=== PATIENT | female | born 2005 | race Caucasian/White ===

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

== ENCOUNTER 2023-05-29 02:39 | Outpatient (CLI) | payer MEDICAID, SELFPAY ==
--- NOTE | 2023-06-04 21:41 | PDOC.EEG ---
Neurology EEG EEG: [facility] Department of Neurology LONG-TERM AMBULATORY EEG REPORT Date of Recordin05/29/23 at 15:39:01 to 05/30/23 at 19:48:59 Interpreting Physician: Dr. Sirisha Haddad PCP/Referring Provider: Reason for study: Current Medications: METHODS: An 18-channel digitized electroencephalogram was recorded in the ambulatory setting with video. The 10/20 international system of electrode placement was used and bipolar and referential electrode montages were recorded. In addition to EEG the patient was monitored for EKG and by video. Activation procedures of photic stimulation and hyperventilation were performed if applicable. The duration of the recording was ~28 hours. DESCRIPTION OF EEG: Waking background activity: During maximal wakefulness a 10.5-Hz posterior background rhythm was present which was well-modulated, symmetrical, reactive to eye opening, and of moderate voltage. Faster frequencies were present in the bilateral anterior head regions. There was a normal anterior-posterior voltage gradient. Drowsy and sleeping background activity: During drowsiness, there was attenuation of the posterior dominant background rhythm and vertex waves. Normal stage II and III sleep was present with symmetrical sleep spindles, K-complexes, and vertex waves with slowing of the background rhythm to delta/theta frequencies. REM sleep manifested by rapid lateral eye movements and faster background rhythms was recorded. Arousal was unremarkable. Interictal abnormalities: none. Ictal findings: Event #1 on 05/29/23 at ~1715 -Clinical manifestations: headache, dizziness x 2hrs -EEG findings: No abnormal or epileptiform activity. Event #2 on 05/29/23 at ~2316 -Clinical manifestations: full body twitch while lying down x 1 second -EEG findings: No abnormal or epileptiform activity. Event #3 on 05/30/23 at ~1106 -Clinical manifestations: sharp pain above left eye while heading for exam x 5 sec -EEG findings: No abnormal or epileptiform activity. Event #4 on 05/30/23 at 1132 -Clinical manifestations: slight head twitch while studying for exam x 1 sec -EEG findings: No abnormal or epileptiform activity. Event #5 on 05/30/23 at 1400 -Clinical manifestations: sharp above left eye while taking exam x 15 sec -EEG findings: No abnormal or epileptiform activity. Event #6 on 05/30/23 at 1528 -Clinical manifestations: slight head twitch to left while drawing x 1 sec -EEG findings: No abnormal or epileptiform activity. Event #7 on 05/30/23 at 1720 -Clinical manifestations: slight head twitch to left while watching youtube x 1 sec -EEG findings: No abnormal or epileptiform activity. Event #8 on 05/30/23 at 1919 -Clinical manifestations: head jerking back and sniffing watching tv x 2 sec -EEG findings: No abnormal or epileptiform activity. Event #9 on 05/30/23 at 1925 -Clinical manifestations: head jerking back and sniffing while talking x 2 sec -EEG findings: No abnormal or epileptiform activity. Activating Procedures: Photic stimulation was performed which produced a symmetrical posterior driving response at various flash frequencies. Hyperventilation was performed with moderate effort and produced subtle physiological slowing of the background. EKG: EKG revealed normal sinus rhythm. INTERPRETATION: This long-term EEG is normal during the awake and sleep states as well as during the activation procedures. Multiple events captured above - none associated with abnormal or epileptiform activity on EEG. PRIOR EEG: none CLINICAL CORRELATION: No focal regions of cerebral dysfunction or epileptiform activity was present. The events captured as above are not epileptic. Epilepsy remains a clinical diagnosis and a normal EEG does not rule out epilepsy. Clinical correlation is advised. Sirisha Haddad MD Code: [id number] Date of service: 05/29/23
== END 2023-05-29 02:40 | disposition home or self-care (01) ==
LOC: RT 02:39
PROVIDERS: PCP Nurse Practitioner Primary Care; Visit Provider Nurse Practitioner Adult Health
DX: F95.9 Tic disorder, unspecified (principal); R94.01 Abnormal electroencephalogram [EEG]
CPT/HCPCS: 95714

== ENCOUNTER 2023-07-29 00:21 | Emergency (ER) | payer MEDICAID, SELFPAY ==
[2023-07-29 00:25] VITALS: BP 167/112; PULSE 99; RESP 18; TEMP 36.2; O2SAT 99
--- NOTE | 2023-07-29 00:36 | ED.GENADUL_ITS ---
Discharge Plan Disposition Patient Disposition: Home Condition: Good Discharge Details Clinical Impression: Pain in tooth Primary Care Provider: KERA BOLDEN ED Provider: Krupa Arias Home Meds and New Rx's Prescriptions: Continued magnesium oxide 500 mg capsule 500 mg PO DAILY sumatriptan succinate 100 mg tablet See Rx Instructions PO .COMPLEX Qty: 14 3RF Rx Instructions: take 1 tab at onset of headache; if no relief, may repeat 1 tab after at least 2 hrs; max = 2 tabs/24 hrs PO prochlorperazine maleate 5 mg tablet See Rx Instructions PO TID PRN (Reason: headaches/nausea) Qty: 30 2RF Rx Instructions: Take 5-10 mg orally three times a day PRN; epinephrine 0.3 mg/0.3 mL auto-injector 0.3 mg IM Q5-15M PRN Rx Instructions: do not exceed 3 doses per episode levalbuterol tartrate [Xopenex HFA] 45 mcg/actuation HFA aerosol inhaler 1 puff inhalation .Q2-4H PRN albuterol sulfate [ProAir HFA] 200 PUFF HFA aerosol inhaler 2 puff Inhalation PRN Discharge Instructions Instructions: Dental Pain ED Additional Instructions: Tylenol and ibuprofen over the counter for pain; follow the directions on the bottle. Call your dentist in the morning to schedule an appointment to be seen as soon as possible to follow up on your visit today. Return to the emergency department for new or worsening symptoms. Referrals: KERA BOLDEN [Primary Care Provider] - [facility] General Mode of arrival: ambulatory . Date/Time Provider Initiated Documentation: 07/29/23 00:36 . Limitations to Documentation: no limitations . Information obtained by: patient . HPI Narrative: 18yo F with hx migraines presenting with dental pain. Has had dental pain on and off for the last year, has a cracked molar that her dentist was unable to extract. Saw oral surgery today in the office, surgery for extraction scheduled for September. Starting around 8pm isrrael began to have severe left upper tooth pain. Took ibuprofen without improvement. Did not have pain earlier today. No procedures were done in the office. She is otherwise in her usual state of health with no fevers, chills, rash, nausea, vomiting, difficultly swallowing, facial swelling, neck pain, or other concerns. Related Data Home Medications Medication Instructions Recorded Confirmed albuterol sulfate 90 mcg/actuation 2 puff inhalation PRN 05/25/13 07/29/23 aerosol inhaler (ProAir HFA) epinephrine 0.3 mg/0.3 mL 0.3 mg IM Q5-15M PRN 09/09/21 07/29/23 injection, auto-injector levalbuterol tartrate 45 1 puff inhalation .Q2-4H PRN 09/09/21 07/29/23 mcg/actuation aerosol inhaler (Xopenex HFA) magnesium oxide 500 mg capsule 500 mg PO DAILY 07/17/22 07/29/23 prochlorperazine maleate 5 mg See Rx Instructions PO TID PRN 07/14/23 07/29/23 tablet headaches/nausea #30 tabs sumatriptan succinate 100 mg tablet See Rx Instructions PO .COMPLEX 07/14/23 07/29/23 #14 tabs Previous Rx's Medication Instructions Recorded prochlorperazine maleate 5 mg See Rx Instructions PO TID PRN 07/14/23 tablet headaches/nausea #30 tabs sumatriptan succinate 100 mg tablet See Rx Instructions PO .COMPLEX 07/14/23 #14 tabs Allergies Allergy/AdvReac Type Severity Reaction Status Date / Time No Known Allergies Allergy Unverified 07/29/23 00:28 General Stated Complaint: DentalOral YELENA: 3 Review of Systems Narrative: see HPI Exam Narrative Exam Narrative: General: Alert, non-toxic Head: Normocephalic, atraumatic Neck: Trachea midline, ?Neck supple. Anterior neck non-tender. ENT: ?MMM.? Left posterior molar cracked. No surrounding erythema, discharge, or abscess. Cardiac: ?No cyanosis. Resp: No respiratory distress. Speaking in full sentences. . Abd: ?Non-distended Extremities: ?No deformities.? No peripheral edema. Neurologic: GCS 15. ? Moves all extremities freely against gravity Course Vital Signs Vital signs: Vital Signs Temperature 36.2 C L 07/29/23 00:25 Pulse 99 H 07/29/23 00:25 Respiratory Rate 18 07/29/23 00:25 Blood Pressure 167/112 H 07/29/23 00:25 Pulse Oximetry 99 07/29/23 00:25 Temperature 36.2 C L 07/29/23 00:25 Pulse 99 H 07/29/23 00:25 Respiratory Rate 18 07/29/23 00:25 Blood Pressure 167/112 H 07/29/23 00:25 Blood Pressure Position Sitting 07/29/23 00:25 Pulse Oximetry 99 07/29/23 00:25 Procedures Nerve Block Nerve Block 1: Local Anesthetic: Lidocaine 2% and with Epi Amount of anesthesia used (mL): 3 Side: left Intraoral Nerve Block: superior alveolar Patient Tolerated Procedure: well Complications: none Medical Decision Making 18yo F with hx migraines presenting with dental pain; dental pain on and off for the last year with cracked molar on the left which was unable to be extracted by her dentist. Saw oral surgery today in the office and extraction scheduled for September. No procedures in the office today. This evening began to have severe left upper posterior mouth pain; had not had pain earlier in the day. Systemically well. Tachycardiac and hypertensive on arrival (suspect 2/t to pain), on exam has cracked left upper posterior molar with no signs of abscess, no facial swelling, no other indication of infection. Possible pain was triggered by exam earlier in the day. Unlikely sepsis. No suggestion of deep space neck infections, ludwigs, periapical abscess, etc; would not get CT imaging or labs. Will do dental block now for pain control and to allow for some sleep tonight; advised calling dental office in the morning to schedule appointment ALEXANDRA. Repeat VS after dental block normalized. Discharged home; discharge instructions and return precautions were reviewed with patietn who verbalized understanding. All questions were answered and she is in full agreement with the plan. Quality:SDOH Health Related Social Needs: No Data to Display PFSH All Active Problems (Updated 07/29/23 @ 00:53 by Krupa Arias MD) Pain in tooth (Acute) Tic (Acute) Shuddering spell (Acute) Atypical migraine (Acute) Medical History Intermittent asthma Obesity Wrist pain History of cold urticaria Headache Asthma Surgical History No significant past surgical history Family History Sister Gastroschisis Asthma Paternal Grandmother Rheumatoid arthritis Paternal Grandfather Rheumatoid arthritis Social History Smoking/Tobacco Use Status: Never Smoking risk assessment performed?: Yes Alcohol Intake: never Drug use: Never Substance use type: does not use Do you feel safe at home: Yes Do you feel safe in your relationship?: Yes
[2023-07-29] MEDS: Benzocaine 20% Gel 30 GM JAR MM (00:38)
[2023-07-29 00:57] VITALS: BP 124/68; PULSE 71
== END 2023-07-29 02:30 | disposition home or self-care (01) ==
PROVIDERS: Emergency Provider Student in an Organized Health Care Education/Training Program; PCP Nurse Practitioner Primary Care
DX: S02.5XXA Fracture of tooth (traumatic), initial encounter for closed fracture (principal); K08.89 Other specified disorders of teeth and supporting structures; X58.XXXA Exposure to other specified factors, initial encounter
CPT/HCPCS: 64400; 96372; 99283; 99284; J1885

== ENCOUNTER 2023-07-29 02:07 | Emergency (ER) | payer MEDICAID, SELFPAY ==
[2023-07-29 02:09] VITALS: BP 171/105; PULSE 91; RESP 18; TEMP 36.1; O2SAT 97
--- NOTE | 2023-07-29 02:18 | ED.GENADUL_ITS ---
Discharge Plan Disposition Patient Disposition: Home Condition: Stable Discharge Details Clinical Impression: Pain, dental Primary Care Provider: KERA BOLDEN ED Provider: Krupa Arias Home Meds and New Rx's Prescriptions: Continued magnesium oxide 500 mg capsule 500 mg PO DAILY sumatriptan succinate 100 mg tablet See Rx Instructions PO .COMPLEX Qty: 14 3RF Rx Instructions: take 1 tab at onset of headache; if no relief, may repeat 1 tab after at least 2 hrs; max = 2 tabs/24 hrs PO prochlorperazine maleate 5 mg tablet See Rx Instructions PO TID PRN (Reason: headaches/nausea) Qty: 30 2RF Rx Instructions: Take 5-10 mg orally three times a day PRN; epinephrine 0.3 mg/0.3 mL auto-injector 0.3 mg IM Q5-15M PRN Rx Instructions: do not exceed 3 doses per episode levalbuterol tartrate [Xopenex HFA] 45 mcg/actuation HFA aerosol inhaler 1 puff inhalation .Q2-4H PRN albuterol sulfate [ProAir HFA] 200 PUFF HFA aerosol inhaler 2 puff Inhalation PRN Discharge Instructions Instructions: Dental Pain ED HPI General Mode of arrival: ambulatory . Date/Time Provider Initiated Documentation: 07/29/23 02:17 . Limitations to Documentation: no limitations . Information obtained by: patient and family . HPI Narrative: 18yo F presenting with dental pain. Seen in this ED earlier tonight for same; given dental block at that time. Block has began to wear off and pain has returned. No other changes in the intervening hour since she was discharged from the ED. Related Data Home Medications Medication Instructions Recorded Confirmed albuterol sulfate 90 mcg/actuation 2 puff inhalation PRN 05/25/13 07/29/23 aerosol inhaler (ProAir HFA) epinephrine 0.3 mg/0.3 mL 0.3 mg IM Q5-15M PRN 09/09/21 07/29/23 injection, auto-injector levalbuterol tartrate 45 1 puff inhalation .Q2-4H PRN 09/09/21 07/29/23 mcg/actuation aerosol inhaler (Xopenex HFA) magnesium oxide 500 mg capsule 500 mg PO DAILY 07/17/22 07/29/23 prochlorperazine maleate 5 mg See Rx Instructions PO TID PRN 07/14/23 07/29/23 tablet headaches/nausea #30 tabs sumatriptan succinate 100 mg tablet See Rx Instructions PO .COMPLEX 07/14/23 07/29/23 #14 tabs Previous Rx's Medication Instructions Recorded prochlorperazine maleate 5 mg See Rx Instructions PO TID PRN 07/14/23 tablet headaches/nausea #30 tabs sumatriptan succinate 100 mg tablet See Rx Instructions PO .COMPLEX 07/14/23 #14 tabs Allergies Allergy/AdvReac Type Severity Reaction Status Date / Time No Known Allergies Allergy Verified 07/29/23 02:28 General Stated Complaint: DentalOral YELENA: 4 Review of Systems Narrative: see HPI Exam Narrative Exam Narrative: General: Alert, tearful. Head: Normocephalic, atraumatic Neck: Trachea midline, ?Neck supple. Nontender. ENT: ?MMM.? Left upper posterior molar cracked, no erythema or swelling or abscess. Cardiac: ?No cyanosis. Resp: No respiratory distress. Speaking in full sentences. Abd: ?Non-distended, Extremities: ?No deformities.? No peripheral edema. Neurologic: GCS 15. ? Moves all extremities freely against gravity Course Vital Signs Vital signs: Vital Signs Temperature 36.1 C L 07/29/23 02:09 Pulse 91 H 07/29/23 02:09 Respiratory Rate 18 07/29/23 02:09 Blood Pressure 171/105 H 07/29/23 02:09 Pulse Oximetry 97 07/29/23 02:09 Temperature 36.1 C L 07/29/23 02:09 Temperature Source Temporal Artery Scan 07/29/23 02:09 Pulse 91 H 07/29/23 02:09 Respiratory Rate 18 07/29/23 02:09 Blood Pressure 171/105 H 07/29/23 02:09 Pulse Oximetry 97 07/29/23 02:09 Oxygen Delivery Method Room Air 07/29/23 02:09 Oxygen Flow Rate 0 07/29/23 02:09 Pain Level 10 07/29/23 02:09 Medical Decision Making 18yo F presenting with dental pain accompanied by her mother. Seen in this ED earlier tonight for same; given dental block at that time (see note from that visit for details). Block has began to wear off and pain has returned. No other changes in the intervening hour since she was last discharged from the ED. Of note, saw dental/oral surgery earlier in the day. Exam unchanged since prior presentation. Took tylenol prior to arrival, last ibuprofen around 10pm. Will not repeat dental block hourly or prescribe opiates. Offered toradol which patient initially declined; with some encouragement she decided to accept. Instrcuted to follow up with her dentist in the morning. Discharged home; discharge instructions and return precautions were reviewed with patient who verbalized understanding. All questions were answered. Quality:SDOH Health Related Social Needs: No Data to Display PFSH All Active Problems (Updated 07/29/23 @ 02:20 by Krupa Arias MD) Pain, dental (Acute) Pain in tooth (Acute) Tic (Acute) Shuddering spell (Acute) Atypical migraine (Acute) Medical History Intermittent asthma Obesity Wrist pain History of cold urticaria Headache Asthma Surgical History No significant past surgical history Family History Sister Gastroschisis Asthma Paternal Grandmother Rheumatoid arthritis Paternal Grandfather Rheumatoid arthritis Social History Smoking/Tobacco Use Status: Never Smoking risk assessment performed?: Yes Alcohol Intake: never Drug use: Never Substance use type: does not use Do you feel safe at home: Yes Do you feel safe in your relationship?: Yes
[2023-07-29 02:21] VITALS: BP 171/105; PULSE 91; RESP 18; TEMP 36.1; O2SAT 97
[2023-07-29] MEDS: Ketorolac 15 MG/ML VIAL IM (02:24)
== END 2023-07-29 02:30 | disposition home or self-care (01) ==
PROVIDERS: Emergency Provider Student in an Organized Health Care Education/Training Program; PCP Nurse Practitioner Primary Care
DX: K08.89 Other specified disorders of teeth and supporting structures (principal)
CPT/HCPCS: 96372; 99284; 99283; J1885

== ENCOUNTER 2023-09-29 21:48 | Outpatient (REF) | payer MEDICAID, SELFPAY ==
--- OUTSIDE RECORDS SUMMARY | 2023-09-29 21:51 | XMS_ITS | Data Portability ---
Author Organization [place] - [facility] [place] [address] Assessment No assessment recorded. Plan of Treatment Reminders Order Date Submit Date Provider Last Modified By Organization Details Last Modified Time Details Appointments New Patient 30 2023 05:58P M Not available Not available Not available Lab rapid strep group A, throat 2023 024 [email or web address] [facility], [address] [place] [address], [facility], [place], [address], 09/29/2023 19:47:01 streptoco ccus sp, beta-hemo lytic, culture, throat [email or web address] [facility] (Registration ), [address] [place] [address] [place], [address], 09/29/2023 19:50:44 Referral None recorded. Procedures None recorded. Surgeries None recorded. Imaging None recorded. Medication Orders None recorded. Patient TargetsNo targets recorded. Patient Instructions Encounter Date Encounter Id Patient Instructions Last Modified By Organization Details Last Modified Time 09/29/2023 [id number] sore throat: car e instructions Not available 09/29/2023 20:11:54 Reason for Referral None Reported. Results Created Date Observation Date Name Description Value Unit Range Abnormal Flag LastModifiedBy Organization Detail LastModifiedTime 09/29/19 24 09/29/2023 rapid strep group A, throa t Strep negati ve Not Available [address], [place], [address], 09/29/2023 19:36:50 Result Notes None recorded. Medical Equipment None Reported. Allergies No known drug allergies Medications Name Sig Start Date Stop Date Status Note LastModified by Organization Details LastModified Time albuterol sulfate (bulk) active Not Available Not Available Not Available Vitals Date Recorded Body height Body mass index (BMI) Body mass index (BMI) Percentile per age and sex Body weight Body temperature Oxygen saturation Oxygen saturation in Arterial blood by Pulse oximetry Heart rate Respiratory rate Systolic blood pressure Diastolic blood pressure Provider Name and Address Organization Details Last Updated DateTime 165.1 cm 36.6 kg/m2 97 % 89314.3 2 g 98.5 [degF] 99 % 99 % 95 /min 17 /min 117 mm[Hg] 83 mm[Hg] THUAN PENNINGTON MA [facility] 19:16:17 Social History Question Answer Notes LastModified by Organizat ion Details LastModified Time Tobacco Smoking Status Never Smoker JOHNNY BELLO, [facility] 09/29/2023 19:14:25 What Was The Date Of Your Most Recent Tobacco Screening? 09/29/2023 [email or web address] Information not available 09/29/2023 Has Tobacco Cessation Counseling Been Provided? No Information not available 09/29/2023 Do You Or Have You Ever Used Any Other Forms Of Tobacco Or Nicotine? No Information not available 09/29/2023 Sex: Unknown Functional Status None recorded. Mental Status None recorded. Family History Nothing Reported. Medical History No medical history recorded. Gynecological HistoryNo gynecological history recorded. Obstetrics History GPAL:G 0 P 0 0 0 0 Immunizations Vaccine Type Date Status Provider Name and Address Organization Details Recorded Time Tdap 10/03/2015 completed Mauricio BELLO, [facility] 09/29/2023 19:41:10 Past Encounters Encounter ID Performer Location Encounter Start Date Encounter Closed Date Diagnosis/Indication Diagnosis SNOMED-CT Code [id number] GUIDO ZIEGLER, [employer] [address] [place] [address] 09/29/2023 17:59:49 09/29/2023 19:49:16 Acute pharyngitis [id number] Health Concerns Section Related Observation LastModified by Organization Detai ls LastModified Time None Recorded Concern Status LastModified by Organization Details LastModified Time None Recorded Advance Directives Directive None Recorded Payers Encounter Date Sequence Insurance Name Policy Number Policy Humphreys Covered Member ID Humphreys Member ID Guarantor Name 09/29/[address] [facility] (MEDICAID) [facility] Guillaume [id number] [facility] Notes Date Note Type Note Provider Name and Address Organization Details Recorded Time 09/29/2023 text/html HPI Notes: Patient with symptoms yesterday, with nausea, fatigue, sore throat, painful swallowing, and fever up to 101. She reports subjective difficulty breathing due to feeling of swelling to throat, but is eating/drinking. Patient has not trialed any salt water gargles, or taken OTC Tylenol or Motrin. No known sick exposures. LAURY ONEIL [address], [place], [address], [facility]. 09/29/2023 20:12:00 OBGyn Episode No OBEpisode recorded.
--- OUTSIDE RECORDS SUMMARY | 2023-09-29 21:51 | XMS_ITS | Encounter Summary ---
Author Organization [facility] Address [facility] [place] [address] Care Team Providers Care Associate Software Application Engineer Name Role Phone Adilene Ross APRN Primary Care Provider [phone] Reason for Visit * Reason Comments Eye Exam mother says pt faile d vision screening in school; they are concerned about a lazy eye Encounter Details Date Type Department Care Team (Late st Contact Info) Description 10/18/2010 2:30 PM EDT Office [place] [address] Glen Cervantes, WANDA [facility] [place] [address] Hyperopia (Primary Dx); Intermittent esotropia Discharge Disposition: Home Social History Tobacco Use Types Packs/Day Years Used Date Smoking Tobacco: Never Assessed Sex and Gender Information Value Date Recorded Sex Assigned at Not on file Gender Identity Not on file Sexual Orientation Not on file documented as of this encounter Progress Notes * Glen Cervantes, OD - 10/24/2010 5:29 PM EDT A 1.hyperopia 2.intermittent ET, no amblyopia P 1.,2. No rx now RTC 1 yr CEE without drops documented in this encounter Nursing Notes * 10/18/2010 2:30 PM EDT >> GLEN CERVANTES OD Chey Oct 24, 2010 5:29 PM Failed vision screening in school; school nurse concerned about amblyopia/strabismus Pt and mother report no problems with vision or eyes; mother denies seeing eye turn. documented in this encounter Plan of Treatment Not on file documented as of this encounter Visit Diagnoses Diagnosis Hyperopia- Primary Hypermetropia Intermittent esotropia Intermittent heterotropia, unspecified documented in this encounter Care Teams Associate Software Application Engineer Relationship Specialty Start Date End Date Adilene Ross, INTERIOR DESIGN PROFESSOR [address] [place] [address] PCP - General 01/08/10 10/21/10 documented as of this encounter
--- OUTSIDE RECORDS SUMMARY | 2023-09-29 21:51 | XMS_ITS | Encounter Summary ---
Author Organization [facility] Address [facility] [place] [address] Care Team Providers Care Base Filler Operator Name Role Phone Yoandy Riggins MD, Fermin Martinez Primary Care Provider [phone] Reason for Visit * Reason Comments Blurred Vision Pt here for CEE Encounter Details Date Type Department Care Team (Late st Contact Info) Description 04/13/2012 4:00 PM EST [place] [address] Yuliana Arroyo OD [facility] DR OPHTHALMOLOGY [place] [address] Intermittent esotropia (Primary Dx) Discharge Disposition: Home Social History Tobacco Use Types Packs/Day Years Used Date Smoking Tobacco: Never Smokeless Tobacco: Never Alcohol Use Standard Drinks/Week Comments No 0 (1 standard drink = 0.6 oz pur e alcohol) Sex and Gender Information Value Date Recorded Sex Assigned at Not on file Gender Identity Not on file Sexual Orientation Not on file documented as of this encounter Progress Notes * Yuliana Arroyo OD - 04/13/2012 4:41 PM EST Beto Galaviz is a 7 y.o. female who had a chief complaint of Blurred Vision. No Rx needed. Intermittent ET without amblyopia. Good ocular health on today's exam. Assessment: Encounter Diagnoses Name Primary? Intermittent esotropia Yes Plan: 1)No Rx. Follow up: CEE 2 years. Sooner if having any difficulties. Eyeglass Final Rx Comments: No glasses needed at this time. documented in this encounter Plan of Treatment Not on file documented as of this encounter Visit Diagnoses Diagnosis Intermittent esotropia- Primary Intermittent heterotropia, unspecified documented in this encounter Care Teams Base Filler Operator Relationship Specialty Start Date End Date Fermin Pitt MD PCP - General 11/12/10 09/10/16 documented as of this encounter
--- OUTSIDE RECORDS SUMMARY | 2023-09-29 21:51 | XMS_ITS | Encounter Summary ---
Author Organization [facility] Address [facility] [place] [address] Care Team Providers Care Barrel Lathe Operator Name Role Phone Yoandy Riggins MD, Fermin Martinez Primary Care Provider [phone] Reason for Visit * Reason Comments Strabismus intermittent eso Encounter Details Date Type Department Care Team (Late st Contact Info) Description 04/30/2015 3:20 PM EDT [place] [address] Yuliana Arroyo, WANDA [facility] [place] [address] Intermittent esotropia; Astigmatism of both eyes Social History Tobacco Use Types Packs/Day Years Used Date Smoking Tobacco: Never Smokeless Tobacco: Never Alcohol Use Standard Drinks/Week Comments No 0 (1 standard drink = 0.6 oz pur e alcohol) Sex and Gender Information Value Date Recorded Sex Assigned at Not on file Gender Identity Not on file Sexual Orientation Not on file documented as of this encounter Progress Notes * Yuliana Arroyo, WANDA - 04/30/2015 4:45 PM EDT Beto Galaviz is a 10 y.o. female who had concerns including Strabismus. No Rx needed. Intermittent ET without amblyopia. Good ocular health on today's exam. Assessment: Encounter Diagnoses Name Primary? Intermittent esotropia ??? Astigmatism of both eyes Plan: 1)No Rx. Follow up: CEE 2 years. Sooner if having any difficulties. Eyeglass Final Rx Eyeglass Final Rx Comments: No Rx needed documented in this encounter Plan of Treatment Not on file documented as of this encounter Visit Diagnoses Diagnosis Intermittent esotropia Intermittent heterotropia, unspecified Astigmatism of both eyes Astigmatism, unspecified documented in this encounter Care Teams Barrel Lathe Operator Relationship Specialty Start Date End Date Fermin Pitt MD PCP - General 11/12/10 09/10/16 documented as of this encounter
--- OUTSIDE RECORDS SUMMARY | 2023-09-29 21:51 | XMS_ITS | Clinical Summary ---
[facility] [place] [address] Care Team Providers Care Medical Office Secretary Name Role Phone Unknown Primary Care Provider Unavailabl e Allergies No known active allergies Medications No known medications Active Problems Problem Noted Date Diagnosed Date Astigmatism of both eyes 04/30/2015 Intermittent esotropia 04/13/2012 Family History Medical History Relation Comments Diabetes Maternal Grandfather Heart Disease Maternal Grandfather Cancer Maternal Grandmother Amblyopia Neg Hx Blindness Neg Hx Cataracts Neg Hx Glaucoma Neg Hx Hypertension Neg Hx Macular Degeneration Neg Hx Retinal Detachment Neg Hx Strabismus Neg Hx Stroke Neg Hx Thyroid Disease Neg Hx Relation Status Comments Maternal Grandfather Maternal Grandmother Social History Tobacco Use Types Packs/Day Years Used Date Smoking Tobacco: Never Smokeless Tobacco: Never Alcohol Use Standard Drinks/Week Comments No 0 (1 standard drink = 0.6 oz pur e alcohol) Sex and Gender Information Value Date Recorded Sex Assigned at Not on file Gender Identity Not on file Sexual Orientation Not on file Plan of Treatment Health Maintenance Due Date Last Done Comments Chlamydia Screening 2018 HPV vaccine (1 - 3-dose series) 2018 HIV screen 2021 Hepatitis C Screening 2021 Hepatitis B vaccine (0-59 yrs) (1) 2022 Tdap adult 2022 Tetanus vaccine 2022 Covid-19 Vaccine ( - 2022- season) 2022 Influenza (Flu) vaccine (1 o f 1 - Influenza standard series) 10/18/2023 Care Teams Medical Office Secretary Relationship Specialty Start Date End Date Unknown None PCP - General 09/11/16
--- OUTSIDE RECORDS SUMMARY | 2023-09-29 21:51 | XMS_ITS | Continuity of Care Document ---
Author Organization [place] - [facility], [facility] Address [address] [place] [address] [address] [place] [address] Assessment No assessment recorded. Plan of Treatment Reminders Order Date Submit Date Provider Last Modified By Organization Details Last Modified Time Details Appointments New Patient 30 2023 05:58P M Not available Not available Not available Lab rapid strep group A, throat 2023 024 [facility], [address] [place] [address], [facility], [place], [address], 09/29/2023 19:47:01 streptoco ccus sp, beta-hemo lytic, culture, throat 2023 024 [facility] (Registration ), [address] [place] [address], [id number], 09/29/2023 19:50:44 Referral None recorded. Procedures None recorded. Surgeries None recorded. Imaging None recorded. Medication Orders None recorded. Patient TargetsNo targets recorded. Patient Instructions Encounter Date Encounter Id Patient Instructions Last Modified By Organization Details Last Modified Time 09/29/2023 [id number] sore throat: car e instructions [email or web address] Not available 09/29/2023 20:11:54 Reason for Referral None Reported. Results Created Date Observation Date Name Description Value Unit Range Abnormal Flag LastModifiedBy Organization Detail LastModifiedTime 09/29/19 24 09/29/2023 rapid strep group A, throa t Strep negati ve Not Available [address], [place], [address], 09/29/2023 19:36:50 Result Notes None recorded. Medical [...] DateTime 165.1 cm 36.6 kg/m2 97 % 52008.3 2 g 98.5 [degF] 99 % 99 % 95 /min 17 /min 117 mm[Hg] 83 mm[Hg] THUAN PENNINGTON MA [facility] 19:16:17 Social History Question Answer Notes LastModified by Organizat ion Details LastModified Time Tobacco Smoking Status Never Smoker JOHNNY BELLO, [facility] 09/29/2023 19:14:25 What Was The Date Of Your Most Recent Tobacco Screening? 09/29/2023 [email or web address] Information not available 09/29/2023 Has Tobacco Cessation [...] Details Recorded Time Tdap 10/03/2015 completed Mauricio BELLO [facility] 09/29/2023 19:41:10 Past Encounters Encounter ID Performer Location Encounter Start Date Encounter Closed Date Diagnosis/Indication Diagnosis SNOMED-CT Code [id number] LAURY ONEIL [address],[facility] [place] [address] 09/29/2023 17:59:49 09/29/2023 19:49:16 Acute pharyngitis [id number] Health Concerns Section Related Observation LastModified by Organization Detai ls LastModified Time None Recorded Concern Status LastModified by Organization Details LastModified Time None Recorded Payers Encounter Date Sequence Insurance Name Policy Number Policy Humphreys Covered Member ID Humphreys Member ID Guarantor Name 09/29/2023 1 [facility] (MEDICAID) [facility] Guillaume [id number] [facility] Guillaume Notes Date Note Type Note Provider Name [...] sick exposures. LAURY ONEIL [address], [place], [address], [facility]. 09/29/2023 20:12:00 OBGyn Episode No OBEpisode recorded.
--- OUTSIDE RECORDS SUMMARY | 2023-09-29 21:51 | XMS_ITS | Encounter Summary ---
Author Organization [facility] [place] [address] Care Team Providers Care Business Development Assistant Name Role Phone Unknown Primary Care Provider Unavailabl e Reason for Referral * Consultation (Routine) - Closed Specialty Diagnoses / Procedures Referred By Anjum fontana Referred To Contact Neurology Diagnoses Myoclonic jerking, massive Dejah Salas APRN [facility] [place] [address] [facility] [place] [facility] [address] [place] [id number] Referral ID Status Reason Start Date Expiration Date V isits Requested Visits Authorized [id number] Closed Consult, Test & Treat 02/10/2023 02/10/2024 1 1 Encounter Details Date Type Department Care Team (Late st Contact Info) Description 02/10/2023 Transcribe Orders eD Incoming Referrals [phone] [place] [address] Myoclonic jerking, massive (Primary Dx); Atypical migraine Social History Tobacco Use Types Packs/Day Years Used Date Smoking Tobacco: Never Smokeless Tobacco: Never Alcohol Use Standard Drinks/Week Comments No 0 (1 standard drink = 0.6 oz pur e alcohol) Sex and Gender Information Value Date Recorded Sex Assigned at Not on file Gender Identity Not on file Sexual Orientation Not on file documented as of this encounter Plan of Treatment Scheduled Referrals Name Type Priority Associated Diagnoses Orde r Schedule Referral to Neurology Outpatient Referral Routine Myoclonic jerking, massive Ordered: 02/10/2023 documented as of this encounter Visit Diagnoses Diagnosis Myoclonic jerking, massive- 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
== END 2023-09-29 21:49 | disposition home or self-care (01) ==
LOC: LBN 21:48
PROVIDERS: PCP Nurse Practitioner Primary Care; Visit Provider Nurse Practitioner Family
DX: J02.9 Acute pharyngitis, unspecified (principal)
CPT/HCPCS: 87081